=== PATIENT | female | born 1955 | race Caucasian/White ===

== ENCOUNTER 2020-12-30 09:32 | Day surgery (SDC) | payer MEDICARE, BC ==
[~2020-12-30 09:32] MED LIST: Acetaminophen 325 MG Tab PO SCH; Lactated Ringers 1,000 ML IV SCH; Lidocaine 1%/Sod Bicarbonate in NS 8.4% 1 ML Syringe IDERM PRN; Morphine 8 MG, EPINEPHrine 0.3 MG, Cefuroxime 750 MG, Ketorolac 30 MG, Sodium Chloride ... PRN; Pregabalin 25 MG Cap PO SCH; Sodium Chloride 0.9% 10 ML Syringe FLUSH PRN; oxyCODONE ER 10 MG TAB.ER PO SCH
[2020-12-30] MEDS ORDERED: Lidocaine 1% 4 ML ONE (11:01)
[2020-12-30] MEDS ORDERED: Propofol 200 MG/20 ML SDV ONE ×2 (11:01→14:11)
[2020-12-30] MEDS ORDERED: fentaNYL 100 MCG/2 ML SDV ONE (11:02)
[2020-12-30] MEDS ORDERED: Midazolam 1 MG/ML 2 ML SDV ONE (11:02)
[2020-12-30] MEDS ORDERED: Cyclobenzaprine 10 MG Tab PO PRN (11:55)
[2020-12-30] MEDS ORDERED: oxyCODONE 5 MG Tab PO PRN (11:55)
--- NOTE | 2020-12-30 12:15 | PCM.PREANE ---
Preanesthetic Assessment - Anesthesia/Transfusion/Family Hx Anesthesia History: Prior Anesthesia Without Reaction Family History of Anesthesia Reaction: No Transfusion History: No Prior Transfusion(s) Intubation History: Unknown - Review of Systems General: No Symptoms Pulmonary: No Symptoms Cardiovascular: No Symptoms Gastrointestinal: No Symptoms Neurological: No Symptoms Other: Reports: Easy Bruising - Physical Assessment NPO Status Date: 12/30/20 NPO Status Time: 04:30 ASA Class: 2 Mental Status: Alert & Oriented x3 Airway Class: Mallampati = 2 Thyro-Mental Finger Breadths: 3 Mouth Opening Finger Breadths: 3 ROM/Head Extension: Full Lungs: Clear to Auscultation, Normal Respiratory Effort Cardiovascular: Regular Rate, Regular Rhythm - Allergies Allergies/Adverse Reactions: Allergies Allergy/AdvReac Type Severity Reaction Status Date / Time No Known Allergies Allergy Verified 12/29/20 10:58 - Acknowledgements Anesthesia Type Planned: Spinal Pt an Appropriate Candidate for the Planned Anesthesia: Yes Alternatives and Risks of Anesthesia Discussed w Pt/Guardian: Yes Pt/Guardian Understands and Agrees with Anesthesia Plan: Yes PreAnesthesia Questionnaire HEENT History: Reports: Impaired Vision, Other (See Below) Other HEENT History: Wears corrective lenses Cardiovascular History: Reports: High Cholesterol Respiratory History: Reports: None Gastrointestinal History: Reports: Hiatal Hernia [employer] History: Reports: Fibroids, Musculoskeletal History: Reports: Neck Pain, Chronic (FROM noted with minimal discomort) Psychiatric History: Reports: Anxiety Endocrine/Metabolic History: Reports: Osteopenia - Past Surgical History GI Surgical History: Reports: Cholecystectomy, Colonoscopy Other Surgical History Comment: hiatal herniorrhaphy and D&C - SUBSTANCE USE Tobacco Use Status *Q: Never Tobacco User - HOME MEDS Home Medications: Home Meds Biotin 05/16/15 [History] Calcium Carbonate/Vitamin D3 [Calcium 500 + Vit D 400] 05/16/15 [History] Citalopram [Celexa] 10 mg PO DAILY 05/16/15 [History] Lactobacillus Acidophilus [Probiotic] 05/16/15 [History] Multivitamin [Multivitamins] 1 tab PO DAILY 05/16/15 [History] Bisacodyl [Dulcolax] 5 mg PO DAILY PRN #0 tablet 05/18/15 [Rx] Docusate Sodium [Colace] 100 mg PO BID cap 05/18/15 [Rx] Famotidine [Pepcid] 20 mg PO BID tablet 05/18/15 [Rx] Magnesium Hydroxide [Milk of Magnesia] 30 ml PO BID PRN #0 cup 05/18/15 [Rx] Promethazine [Phenergan] 25 mg PO Q6H PRN #15 tablet 05/18/15 [Rx] Sennosides [Senna] 8.6 mg PO BID PRN #0 tablet 05/18/15 [Rx] Aspirin [Aspirin EC] 325 mg PO BID #60 tab 12/30/20 [Rx] Cyclobenzaprine [Flexeril] 10 mg PO BID PRN #20 tab 12/30/20 [Rx] oxyCODONE 5 - 10 mg PO Q4H PRN #40 tab 12/30/20 [Rx] - CURRENT (IN HOUSE) MEDS Current Meds: Current Medications Acetaminophen (Acetaminophen 325 Mg Tab) 975 mg PO ONETIME CECY Stop: 12/30/20 18:00 Morphine Sulfate 8 mg/Epinephrine HCl 0.3 mg/Cefuroxime Sodium 750 mg/Ketorolac Tromethamine 30 mg/Sodium Chloride 7.9 ml 0 mg .XX ASDIRECTED PRN PRN Reason: Pain Stop: 12/30/20 18:00 Cyclobenzaprine HCl (Cyclobenzaprine 10 Mg Tab) 10 mg PO ONETIME PRN PRN Reason: Pain Stop: 12/30/20 18:00 Lactated Ringer's (Ringers, Lactated) 1,000 mls @ 125 mls/hr IV ASDIRECTED CECY Stop: 12/30/20 23:00 Lidocaine/Sodium Bicarbonate (Lidocaine 1%/Sod Bicarbonate In Ns 8.4% 1 Ml Syringe) 0.25 ml IDERM ONETIME PRN PRN Reason: Prior to IV Start Stop: 12/30/20 18:00 Oxycodone HCl (Oxycodone Er 10 Mg Tab.Er) 10 mg PO ONETIME CECY Stop: 12/30/20 18:00 Oxycodone HCl (Oxycodone 5 Mg Tab) 5 - 10 mg PO ONETIME PRN PRN Reason: Pain Stop: 12/30/20 16:00 Pregabalin (Pregabalin 25 Mg Cap) 50 mg PO ONETIME CECY Stop: 12/30/20 18:00 Sodium Chloride (Sodium Chloride 0.9% 10 Ml Syringe) 10 ml FLUSH ASDIRECTED PRN PRN Reason: Keep Vein Open Stop: 12/30/20 18:00 Discontinued Medications Fentanyl (Fentanyl 100 Mcg/2 Ml Sdv) Confirm Administered Dose 100 mcg .ROUTE .STK-MED ONE Stop: 12/30/20 11:03 Lidocaine HCl (Xylocaine-Mpf 1%) Confirm Administered Dose 4 mls @ as directed .ROUTE .STK-MED ONE Stop: 12/30/20 11:02 Midazolam HCl (Midazolam 1 Mg/Ml 2 Ml Sdv) Confirm Administered Dose 2 mg .ROUTE .STK-MED ONE Stop: 12/30/20 11:03 Propofol (Propofol 200 Mg/20 Ml Sdv) Confirm Administered Dose 200 mg .ROUTE .STK-MED ONE Stop: 12/30/20 11:02
[2020-12-30] MEDS ORDERED: ceFAZolin 1 GM Vial ONE (12:23)
[2020-12-30] MEDS ORDERED: Ropivacaine 0.5% 5 MG/ML 30 ML SDV ONE (12:25)
[2020-12-30] MEDS ORDERED: EPINEPHrine 1 MG/ML SDV ONE (12:26)
[2020-12-30] MEDS ORDERED: fentaNYL 100 MCG/2 ML SDV IVPUSH PRN (13:31)
[2020-12-30] MEDS ORDERED: Ondansetron 4 MG/2 ML SDV IVPUSH PRN (13:31)
[2020-12-30] MEDS ORDERED: Lactated Ringers 1,000 ML ONE (13:45)
[2020-12-30] MEDS ORDERED: Ondansetron 4 MG/2 ML SDV ONE (14:12)
[2020-12-30] MEDS ORDERED: Ketorolac 15 MG/ML SDV ONE (14:12)
[2020-12-30] MEDS: Vancomycin 1 GM SDV ONE ×2 (14:29→17:52)
--- NOTE | 2020-12-30 14:52 | PCM.POSTAN ---
POST ANESTHESIA ASSESSMENT - MENTAL STATUS Mental Status: Alert, Oriented - VITAL SIGNS Vital Signs: Last Vital Signs Temp 36.4 C 12/30/20 10:40 Pulse 66 12/30/20 10:40 Resp 14 12/30/20 10:40 BP 137/89 12/30/20 10:40 Pulse Ox 99 12/30/20 10:40 - RESPIRATORY Respiratory Status: Respiratory Rate WNL, Airway Patent, O2 Saturation Stable, Supplemental Oxygen - CARDIOVASCULAR CV Status: Pulse Rate WNL, Blood Pressure Stable - GASTROINTESTINAL GI Status: No Symptoms - PAIN Pain Score: 0 - POST OP HYDRATION Hydration Status: Adequate & Stable
--- NOTE | 2020-12-30 15:04 | PCM.PRNOTE ---
- Free Text/Narrative Note: Left selective femoral nerve block at the adductor canal for post-procedure pain control under US guidance requested by Dr. Rosas. Time Out: 1454 Start: 1455 End: 1500 Chart reviewed. Consent signed. Questions answered. Appropriate monitors applied. Time out performed. Left mid-shaft femur identified with ultrasound, scanning medially of femur, the femoral artery in the adductor canal visualized, and the femoral nerve located laterally to the artery. The skin was prepped lateral to the ultrasound probe with chlorahexadine times two. The 21ga 4 insulated block needle was inserted under direct ultrasound guidance into the adductor canal. 20mL of 0.5% ropivacaine with 1:200,000 epinephrine was injected circumferentially around the nerve with intermittent negative aspiration noted. Patient tolerated the procedure well. Sterile technique noted along with sterile gloves, mask, and sterile probe cover. See picture on progress note and vital signs on nurses notes. Block completed in PACU. Brandi Mesa CRNA
--- NOTE | 2020-12-30 15:38 | CR ---
Left knee: AP and crosstable lateral views of the left knee were obtained. Comparison: Prior left knee CT study of 12/18/20. Knee prosthesis is seen. Patellar prosthesis is also noted. Components are aligned. Soft tissue air is noted from the surgical procedure. No other acute osseous abnormality is appreciated. Impression: 1. Satisfactory postoperative radiographic appearance of recently placed left knee prostheses. Diagnostic code #2
[2020-12-30 16:25] VITALS: BP 121/70; PULSE 76
--- NOTE | 2021-01-14 06:37 | PCM.OPNOTE ---
- General Post-Op/Procedure Note Date of Surgery/Procedure: 12/30/20 Operative Procedure(s): left total knee arthroplasty with [employer] robot[employer] Pre Op Diagnosis: left knee osteoarthrosis Post-Op Diagnosis: Same Anesthesia Technique: Local, MAC, Spinal Primary Surgeon: Michael Rosas Anesthesia Provider: Brandi Mesa Boiler Helper: Alyce Pretty Boiler Helper: Deandra Seymour EBL in mLs: 5 Complications: None Condition: Good Free Text/Narrative:: 07/24 9mm 35x10
--- NOTE | 2021-01-14 08:12 | OR ---
DATE OF OPERATION: 12/30/2020 SURGEON: Michael Rosas MD OPERATION PERFORMED: Left total knee arthroplasty with [place] [employer] robot[employer]. PREOPERATIVE DIAGNOSIS: Left knee osteoarthrosis. POSTOPERATIVE DIAGNOSIS: Left knee osteoarthrosis. ANESTHESIA: Local MAC with spinal. ANESTHESIA PROVIDER: ASSISTANTS: Alyce Pretty PA-C; and Deandra Seymour LPN. ESTIMATED BLOOD LOSS: 5 mL. COMPLICATIONS: None. CONDITION: Stable. IMPLANT: 1. [place] size 5 cemented PS femur. 2. [place] size 5 cemented [place] tibial baseplate. 3. Arianne size 5, 9 mm PS X3 polyethylene. 4. [place] size 35 x 10 mm press-fit cemented asymmetric patella. DESCRIPTION OF PROCEDURE: The patient was identified in the preop holding area. Proper site was marked and identified by the surgeon. The patient was taken back to the operating theater where after adequate anesthesia, the patient's left lower extremity had a nonsterile tourniquet applied and it was sterilely prepped and draped in the usual sterile fashion. OR time-out was performed. The patient received 2 g IV Ancef . Leg keyes was then applied to the left lower extremity. At this time, the left lower extremity was exsanguinated. Tourniquet was insufflated to 250 mmHg . Standard anterior incision was made. Medial parapatellar arthrotomy was created. Deep fibers of the MCL were raised as well as anterior fat pad was resected. Attention was turned to the patella. Patella measured 24 mm; it was resected to a 14 mm for 35 x 10 mm patella. Drill holes were then drilled. Attention was then turned to the femur. Two 4.0 pins were placed intra- incisionally for the [place] [employer] robotic array and then 2 more were placed on the tibia 3 fingerbreadths below the tibial tubercle. The [place] [employer] robotic arrays were placed on both the femur and the tibia then at this time as well as checkpoints on the femur and tibia. Hip center rotation was then obtained. The medial and lateral malleoli were marked. At this time, 40 points were obtained off the femur and the tibia for the [place] [employer] robotic plan. The patient's knee was brought to full extension. Varus and valgus stresses were applied and then into 90 degrees of flexion with a curved osteotome. Varus and valgus stresses were applied. At this time, dough robotic plan was done to 20 mm gaps in both flexion and extension. [place] [employer] robotic arm was then brought in. A straight saw blade was then used for the tibial cut, the anterior femoral cut, the anterior chamfer cut, and the posterior femoral cut. All bony fragments were removed. Saw blade was then switched out and the distal femoral cut as well as the posterior chamfer cut was completed. At this time, medial and lateral menisci were resected as well as any posterior osteophytes. A 5 mm trial tibia was then placed, 5 mm trial femur was placed, and a 9 mm polyethylene trial liner was placed. The patient's knee was brought to full extension and flexion. Varus and valgus stresses were applied, was found to be stable with no instability. No signs of liftoff or loosening were noted. At this time, box cut was completed on the femur. The pins were removed from the femur and the tibia as well as the arrays and the checkpoints. Cement was mixed on the back table. All cut surfaces were irrigated with pulse lavage irrigation with Ancef and then completely dried. Once the cement was ready, the [employer]rianne size 5 mm cemented [place] tibial base plate having been previously stamped and drilled, was then cemented in place on the tibia. The [place] size 5 mm cemented femur was cemented into place. The patient had a Arianne size 9 mm polyethylene insert placed. The patient's knee was brought to full extension. Excess cement was removed. A [place] size 35 x 10 mm cemented asymmetric patella was then cemented into place. 1 L of pulse lavage irrigation with Ancef was irrigated through the knee along with 400 mL of Irrisept irrigation. Periarticular injection was completed. Topical tranexamic acid and vancomycin powder were applied. A #2 barbed suture was used for closure of the medial parapatellar arthrotomy in flexion. 2-0 Vicryl and Stratafix were used for subcutaneous closure. Prineo was used for cutaneous closure. The patient had a sterile soft dressing applied. The tibial holes were closed with nylon, and this was also covered with a sterile soft dressing. The patient had an SHREYAS wrap applied and was sent to PACU in stable condition. The patient tolerated the procedure well. MMILSA /[id number]
== END 2020-12-30 17:05 | disposition home or self-care (01) ==
LOC: JD.SDS 09:32
PROVIDERS: ATTEND Orthopaedic Surgery
DX: M17.12 Unilateral primary osteoarthritis, left knee (principal); G89.29 Other chronic pain; Z98.890 Other specified postprocedural states; Z79.899 Other long term (current) drug therapy; M81.0 Age-related osteoporosis without current pathological fracture; Z90.49 Acquired absence of other specified parts of digestive tract
CPT/HCPCS: 27447; 73560; 97110; 97116; 97161; A9270; C1713; C1776; J0171; J0690; J0697; J1885; J2250; J2270; J2405; J2704; J2795; J3010; J3370; J7120; 01402

== ENCOUNTER 2021-04-08 08:20 | Emergency (ER) | payer MEDICARE, BC ==
[2021-04-08] MEDS ORDERED: Aspirin 81 MG Tab.Chew PO ONE (09:28)
[2021-04-08] MEDS ORDERED: Dextrose 5%-0.9% NaCl 1,000 ML IV SCH (09:30)
[2021-04-08] MEDS ORDERED: Sodium Chloride 0.9% 10 ML Syringe FLUSH ONE (10:19)
[2021-04-08] MEDS ORDERED: Iopamidol 755 Mg/ML 100 ML Bottle IVPUSH ONE (10:19)
[2021-04-08] MEDS ORDERED: Sodium Chloride 0.9% 100 ML IV SCH (10:30)
[2021-04-08 12:19] VITALS: BP 154/94; PULSE 65
== END 2021-04-08 12:50 | disposition home or self-care (01) ==
LOC: JD.ED 08:20
DX: I30.9 Acute pericarditis, unspecified (principal); E78.00 Pure hypercholesterolemia, unspecified; Z79.82 Long term (current) use of aspirin; Z79.899 Other long term (current) drug therapy
CPT/HCPCS: 36415; 71045; 71275; 80053; 82553; 83735; 84484; 85025; 85379; 85610; 93005; 99285; A9270; J7042; Q9967

== ENCOUNTER 2021-04-27 00:33 | Emergency (ER) | payer MEDICARE, OTHER ==
[2021-04-27 01:26] VITALS: BP 162/83; PULSE 93
[2021-04-27] MEDS ORDERED: Sodium Chloride 0.9% 1,000 ML IV ONE (01:44)
[2021-04-27] MEDS ORDERED: Loperamide 2 MG Cap PO STA (01:44)
[2021-04-27] MEDS ORDERED: Ondansetron 4 MG/2 ML SDV IVPUSH ONE (01:44)
== END 2021-04-27 03:54 | disposition home or self-care (01) ==
LOC: JD.ED 00:33
DX: K52.9 Noninfective gastroenteritis and colitis, unspecified (principal); K21.9 Gastro-esophageal reflux disease without esophagitis; Z79.899 Other long term (current) drug therapy
CPT/HCPCS: 36415; 80053; 83735; 85007; 85027; 96374; 99284; A9270; J2405; J7030